=== PATIENT | female | born 1935 | race Caucasian/White ===

== ENCOUNTER → 2016-12-02 | Outpatient (CLI) | payer MEDICARE ==
[~2016-12-02] MED LIST: FRS/40 PO; SPIR50TA2 PO; TAMO20TA47 PO; VERA180T15 PO; Vitamin D PO
--- NOTE | 2016-12-03 08:25 | MAMMOGRAPHY REPORT ---
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 The patient denies any current complaints. TECHNIQUE: Breast tomosynthesis in addition to standard 2D mammography was performed. Current study was also evaluated with a Computer Aided Detection (CAD) system. Bilateral CC and MLO 2-D and angel synthesis images and spot magnification left CC and ML views were obtained. COMPARISON: Comparison is made to exams dated: 12/01/2015 mammogram, 05/29/2015 mammogram, 11/28/2014 m ammogram, 06/27/2014 mammogram, and 05/29/2015 ultrasound - [facility]. BREAST COMPOSITION: There are scattered areas of fibroglandular density in both breasts. FINDINGS: There has been no significant interval change compared to prior exams. There are stable po stsurgical changes in the left upper outer quadrant, with stable density, architectural distortion, and surgical clips at the lumpectomy bed. Mild diffuse left breast skin and trabecular thickening i s stable, and likely due to prior radiation therapy. Again noted are multiple clusters of similar-a ppearing round/punctate calcifications scattered throughout both breasts, not significantly changed compared to multiple prior exams dating back to at least the October 2014 and May 2014 exams. Gi wily the long-term stability and benign morphology and distribution, the calcifications are considere d benign. No new suspicious masses, calcifications, or areas of architectural distortion are noted in either breast. IMPRESSION: ACR BI-RADS CATEGORY 2: BENIGN There is no mammographic evidence of malignancy in either breast. Recommend routine bilateral mammo grams in one year; I would recommend the patient remain a diagnostic patient given the history of le ft breast cancer and bilateral calcifications. The patient has been verbally notified of the result s. Approximately 10% of breast cancers are not detected with mammography. A negative mammographic repor t should not delay biopsy if a clinically suggestive mass is present. Belia Mayfield M.D. /:12/02/2016 09:39:57 Operational Test Mechanic: Rola REDD)(Azeb), [facility] letter sent: Normal /2 BI-RADS Code: ACR BI-RADS Category 2: Benign
== END | disposition home or self-care (01) ==
LOC: C.MAMM 08:14
PROVIDERS: ATTEND Internal Medicine Hematology & Oncology
DX: Z08 Encounter for follow-up examination after completed treatment for malignant neoplasm (principal); Z85.3 Personal history of malignant neoplasm of breast

== ENCOUNTER → 2017-04-04 | Outpatient (CLI) | payer MEDICARE ==
[~2017-04-04] MED LIST changes: +ACET325T96 PO; -TAMO20TA47 PO; +TAMO20TA9 PO
[2017-04-04 12:49] LABS: BLOOD UREA NITROGEN 28 mg/dl (7-18); BUN/CREATININE RATIO 16.5 (10-20); CARBON DIOXIDE 26 mmol/L (21-32); CHLORIDE 105 mmol/L (98-107); GLUCOSE 104 mg/dl (70-99); PHOSPHORUS 2.6 mg/dl (2.5-4.9); POTASSIUM 4.3 mmol/L (3.5-5.1); SODIUM 141 mmol/L (136-145)
[2017-04-04 12:50] LABS: URINE APPEARANCE CLOUDY (CLEAR); URINE BILIRUBIN NEG (NEG); URINE COLOR DK YELLOW; URINE EPITHELIAL CELL AUTO >30 /lpf (0-5); URINE NITRITE NEG (NEG); URINE SPECIFIC GRAVITY 1.019 (1.000-1.030); UROBILINOGEN NEG (NEG)
[2017-04-04 12:57] LABS: MANUAL MICROSCOPIC REQUIRED? NO; REVIEW REQ? YES
[2017-04-04 13:00] LABS: CALCIUM 9.6 mg/dl (8.5-10.1)
== END | disposition home or self-care (01) ==
LOC: C.LAB1850 09:37
PROVIDERS: ATTEND Internal Medicine Nephrology
DX: N18.3 Chronic kidney disease, stage 3 (moderate) (principal)

== ENCOUNTER → 2017-04-11 | Outpatient (CLI) | payer MEDICARE ==
[2017-04-11 11:11] LABS: CALCIUM 9.4 mg/dl (8.5-10.1)
[2017-04-11 11:19] LABS: BLOOD UREA NITROGEN 32 mg/dl (7-18); BUN/CREATININE RATIO 22.6 (10-20); CARBON DIOXIDE 23 mmol/L (21-32); CHLORIDE 107 mmol/L (98-107); GLUCOSE 89 mg/dl (70-99); POTASSIUM 4.2 mmol/L (3.5-5.1); SODIUM 141 mmol/L (136-145)
[2017-04-12 21:53] LABS: ALBUMIN 3.9 G/DL (3.8-4.8); FREE KAPPA 48.9 MG/L (3.3-19.4); FREE KAPPA/LAMBDA RATIO 1.91 (0.26-1.65); FREE LAMBDA 25.6 MG/L (5.7-26.3); GAMMA GLOBULIN 1.3 G/DL (0.8-1.7); MONOCLONAL PROTEIN BAND 1 0.5 G/DL (NOT DETECTED); TOTAL PROTEIN 7.1 G/DL (6.2-8.3)
== END | disposition home or self-care (01) ==
LOC: C.LAB1850 09:55
PROVIDERS: ATTEND Internal Medicine Nephrology
DX: R31.29 Other microscopic hematuria (principal); N17.9 Acute kidney failure, unspecified

== ENCOUNTER → 2017-09-06 | Outpatient (CLI) | payer MEDICARE ==
[2015-08-28 13:11] VITALS: BP 116/68; PULSE 84
[2017-09-06 13:12] VITALS: BP 141/62; PULSE 64; TEMP 36.8; O2SAT 96
--- NOTE | 2017-09-06 14:41 | Radiation Oncology Follow-Up ---
Radiation Oncology Follow-Up Date of Visit Sep 06, 2017. Reason For Visit Annual follow-up Radiation Completion Date Hypofractionation 03/12/14 Diagnosis (1) Ductal carcinoma in situ of breast Status: Resolved Onset Date: 01/02/2014 Stage: 0 Permanent Comment: Abnormal left breast mammogram Biopsy-positive for DCIS have logic stage [id number] status post completion of radiation therapy utilizing hypo-fractionation completed 03/12/2014 received 5006 cGy Last Edited By: Chely Yarbrough on Aug 28, 2015 14:18 Interim History She's been doing well over this past year. She is noted no changes to her breast. She is noted no masses or tenderness no change of the axilla. She's had no swelling of her arm. She is up-to-date with mammography. She does feel that she is currently not scheduled for follow-up mammography. We discussed the previous issue of neck discomfort that she was having last year. This has completely resolved. This did not recur. She is having issues with pain of her ankles and feet. She is following with an orthopedic surgeon. She has been prescribed new orthotics. Allergies Coded Allergies: Penicillins (Verified Allergy, Intermediate, RASH, 01/02/14) Home Medications Scheduled Furosemide (Lasix), 20 MG PO HS Spironolactone (Aldactone), 50 MG PO HS Tamoxifen (Nolvadex), 20 MG PO DAILY Verapamil Sust Rel (Calan Sr Ext Rel), 180 MG PO DAILY [Vitamin D], 20,000 INTER.UNIT PO DAILY Scheduled PRN Acetaminophen Tab (Tylenol), 650 MG PO Q6H PRN for Pain Review of Systems Gastrointestinal: Symptoms: WNL Oral: Symptoms: No Problems Respiratory: Symptoms: WNL Urinary: Symptoms: WNL Comments: Having workup for microscopic hematuria; Skin: Symptoms: No Problems Breast: Right Upper Arm Measurement: 31.5 Right Mid Arm Measurement: 23.3 Right Wrist Measurement: 16.8 Left Upper Arm Measurement: 30.5 Left Mid Arm Measurement: 23.3 Left Wrist Measurement: 16.0 Arm Dominence: Right Physical Exam Vital Signs Date Time Temp Pulse Resp B/P (MAP) Pulse Ox O2 Delivery O2 Flow Rate FiO2 09/06/17 13:12 36.8 64 20 141/62 96 Pain: Pain Location: None Patient Pain Scale: 0 - 10 Initial Pain Intensity: 0.0 Fatigue: None General Appearance: no apparent distress Eyes: normal inspection, EOMI ENT: normal ENT inspection, hearing grossly normal Neck: no adenopathy, thyroid normal Respiratory/Chest: lungs clear, no respiratory distress, no accessory muscle use Breast: Breast examination reveals well-healed incision of the left breast. There are no masses or tenderness and no axillary adenopathy. She has no skin retractions or nipple changes. Using the Philadelphia score cosmesis she has a excellent outcome. The right breast showed no masses or tenderness no axillary adenopathy. Cardiovascular: regular rate, rhythm, no gallop, no murmur Abdomen: non tender, soft Extremities: no pedal edema Neurologic/Psychiatric: no motor/sensory deficits, alert, normal mood/affect Skin: warm/dry Additional Studies Patient: INDRA BARBOUR [facility] Rec: [id number] Address1: [address] [place] [address] Address2: [facility] ID: [id number] Date: 1935 Sex: F Ref Phy: Att Phy: Kirk Colunga MD [place]qu[place] Phy: Morgan Mcdaniel D.O.Int.Med. 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 The patient denies any current complaints. TECHNIQUE: Breast tomosynthesis in addition to standard 2D mammography was performed. Current study was also evaluated with a Computer Aided Detection (CAD ) system. Bilateral CC and MLO 2-D and tomosynthesis images and spot magnification left CC and ML views were obtained. COMPARISON: Comparison is made to exams dated: 12/01/2015 mammogram, 05/29/2015 mammogram, 11/28/2014 mammogram, 06/27/2014 mammogram, and 05/29/2015 ultrasound - [facility]. BREAST COMPOSITION: There are scattered areas of fibroglandular density in both breasts. FINDINGS: There has been no significant interval change compared to prior exams. There are stable postsurgical changes in the left upper outer quadrant, with stable density, architectural distortion, and surgical clips at the lumpectomy bed. Mild diffuse left breast skin and trabecular thickening is stable, and likely due to prior radiation therapy. Again noted are multiple clusters of similar-appearing round/punctate calcifications scattered throughout both breasts, not significantly changed compared to multiple prior exams dating back to at least the October 2014 and May 2014 exams. Given the long-term stability and benign morphology and distribution, the calcifications are considered benign. No new suspicious masses, calcifications , or areas of architectural distortion are noted in either breast. IMPRESSION: ACR BI-RADS CATEGORY 2: BENIGN There is no mammographic evidence of malignancy in either breast. Recommend routine bilateral mammograms in one year; I would recommend the patient remain a diagnostic patient given the history of left breast cancer and bilateral calcifications. The patient has been verbally notified of the results. Approximately 10% of breast cancers are not detected with mammography. A negative mammographic report should not delay biopsy if a clinically suggestive mass is present. Belia Mayfield M.D. ah/:12/02/2016 09:39:57 Helper Driver: Rola REDD)(Azeb), [facility] letter sent: Normal 1/2 BI-RADS Code: ACR BI-RADS Category 2: Benign Dictated by: Belia Mayfield MD Signed by: Belia Mayfield MD Assessment & Plan Plan: Continue annual mammography. We did schedule her for a mammogram for next year. Continue regular follow-up with medical oncology and her primary care physician. We asked her to return to our office in 1 year. She recall she has any questions or concerns in the interim. Total Time In Follow-Up I spent 20 minutes speaking to the patient and performing examination. I spent 15 minutes reviewing information in completing this note. Copy To Judith Iqbal P.A.; Kirk Colunga MD Problem Qualifiers (1) Ductal carcinoma in situ of breast: Laterality: left Qualified Codes: D05.12 - Intraductal carcinoma in situ of left breast
== END | disposition home or self-care (01) ==
LOC: C.ONC 13:06
PROVIDERS: ATTEND Physician Assistant Medical
DX: Z08 Encounter for follow-up examination after completed treatment for malignant neoplasm (principal); Z92.3 Personal history of irradiation; Z85.3 Personal history of malignant neoplasm of breast

== ENCOUNTER → 2017-10-04 | Outpatient (CLI) | payer MEDICARE ==
[2017-10-04 13:27] LABS: URINE APPEARANCE CLEAR (CLEAR); URINE BILIRUBIN NEG (NEG); URINE COLOR YELLOW; URINE NITRITE NEG (NEG); URINE SPECIFIC GRAVITY 1.018 (1.000-1.030); UROBILINOGEN NEG (NEG)
[2017-10-04 13:30] LABS: MANUAL MICROSCOPIC REQUIRED? NO; REVIEW REQ? NO
[2017-10-04 13:46] LABS: CREATININE, URINE 73.4 mg/dl; URINE PROTIEN/CREAT RATIO 0.2 (0-0.2); URINE TOTAL PROTEIN 11.5 mg/dl (0-11.9)
[2017-10-04 13:47] LABS: HEMATOCRIT 43.8 % (37-47); MEAN CELL VOLUME 94.6 fL (80-100); MEAN CORPUSCULAR HEMOGLOBIN 30.9 pg (25-34); MEAN CORPUSCULAR HGB CONC 32.6 g/dl (32-36); MEAN PLATELET VOLUME 10.3 fL (7.4-10.4); PLATELET COUNT 260 K/uL (130-400); RED BLOOD COUNT 4.63 M/uL (4.2-5.4); WHITE BLOOD COUNT 7.18 K/uL (4.8-10.8)
[2017-10-04 14:02] LABS: BLOOD UREA NITROGEN 33 mg/dl (7-18); BUN/CREATININE RATIO 21.5 (10-20); CALCIUM 9.7 mg/dl (8.5-10.1); CARBON DIOXIDE 26 mmol/L (21-32); CHLORIDE 105 mmol/L (98-107); CREATININE 1.54 mg/dl (0.60-1.20); GLUCOSE 123 mg/dl (70-99); PHOSPHORUS 2.8 mg/dl (2.5-4.9); POTASSIUM 4.1 mmol/L (3.5-5.1); SODIUM 138 mmol/L (136-145)
== END | disposition home or self-care (01) ==
LOC: C.LABBC 11:15
PROVIDERS: ATTEND Internal Medicine Nephrology
DX: N18.3 Chronic kidney disease, stage 3 (moderate) (principal); E55.9 Vitamin D deficiency, unspecified

== ENCOUNTER → 2017-12-05 | Outpatient (CLI) | payer MEDICARE ==
--- NOTE | 2017-12-06 13:28 | MAMMOGRAPHY REPORT ---
BILATERAL DIGITAL SCREENING MAMMOGRAM TOMOSYNTHESIS WITH CAD: 12/05/2017 CLINICAL HISTORY: Asymptomatic. Personal history of breast cancer. TECHNIQUE: Breast tomosynthesis in addition to standard 2D mammography was performed. Current study was also evaluated with a Computer Aided Detection (CAD) system. COMPARISON: Comparison is made to exams dated: 12/02/2016 mammogram, 12/01/2015 mammogram, 05/29/2015 janet mogram, 11/28/2014 mammogram, 06/27/2014 mammogram, and 05/07/2013 mammogram - [facility]. BREAST COMPOSITION: There are scattered areas of fibroglandular density in both breasts. FINDINGS: The left MLO 2-D view is degraded by patient motion. However, the corresponding left MLO t omosynthesis images and reconstructed C-view are considered adequate for evaluation. There are stabl e postsurgical changes in the 12:00 middle and anterior left breast, at the site of prior lumpectomy. There are diffuse bilateral microcalcifications including stable groupings of microcalcifications i n the lateral and medial left breast, that are similar in appearance dating back to at least 04/26/20 08, therefore likely benign. No new suspicious mass, architectural distortion or new suspicious micr ocalcifications are identified. IMPRESSION: ACR BI-RADS CATEGORY 1: NEGATIVE There is no mammographic evidence of malignancy. A 1 year screening mammogram is recommended. The pa tient will receive written notification of the results. Approximately 10% of breast cancers are not detected with mammography. A negative mammographic report should not delay biopsy if a clinically suggestive mass is present. Karol Thomson M.D. ay/:12/05/2017 17:14:19 Clothing Consultant: Roselia REDD)(Azeb), [facility] letter sent: Normal /2 BI-RADS Code: ACR BI-RADS Category 1: Negative
== END | disposition home or self-care (01) ==
LOC: C.MAMM 08:45
PROVIDERS: ATTEND Physician Assistant Medical
DX: Z12.31 Encounter for screening mammogram for malignant neoplasm of breast (principal); Z85.3 Personal history of malignant neoplasm of breast

== ENCOUNTER → 2018-03-02 | Outpatient (CLI) | payer MEDICARE ==
[~2018-03-02] MED LIST changes: +ACET-1693 PO; -ACET325T96 PO
[2018-03-02 10:55] LABS: BASO % 0.5 %; BASO ABS # 0.04 K/uL (0-0.2); EOS % 0.9 %; EOS ABS # 0.07 K/uL (0-0.5); HEMATOCRIT 40.8 % (37-47); HEMOGLOBIN 13.5 g/dL (12.0-16.0); IG# 0.03 K/uL (0.00-0.02); LYMPH % 24.7 %; MEAN CELL VOLUME 93.6 fL (80-100); MEAN CORPUSCULAR HGB CONC 33.1 g/dl (32-36); MEAN PLATELET VOLUME 10.1 fL (7.4-10.4); MONO % 11.4 %; MONO ABS # 0.92 K/uL (0.11-0.59); NEUT % 62.1 %; NEUT ABS # 5.04 K/uL (1.4-6.5); PLATELET COUNT 257 K/uL (130-400); RED CELL DISTRIBUTION WIDTH CV 13.5 % (11.5-14.5); RED CELL DISTRIBUTION WIDTH SD 46.7 fL (36.4-46.3)
[2018-03-02 14:00] LABS: ALBUMIN 3.5 gm/dl (3.4-5.0); ALT/SGPT 13 U/L (12-78); AST/SGOT 16 U/L (15-37); BLOOD UREA NITROGEN 41 mg/dl (7-18); CALCIUM 9.7 mg/dl (8.5-10.1); CARBON DIOXIDE 24 mmol/L (21-32); CREATININE 1.38 mg/dl (0.60-1.20); GLUCOSE 95 mg/dl (70-99); POTASSIUM 4.4 mmol/L (3.5-5.1); SODIUM 134 mmol/L (136-145)
[2018-03-02 14:02] LABS: ALKALINE PHOSPHATASE 68 U/L (45-117); TOTAL PROTEIN 7.4 gm/dl (6.4-8.2)
== END | disposition home or self-care (01) ==
LOC: C.LABBC 09:02
PROVIDERS: ATTEND Internal Medicine Hematology & Oncology
DX: Z85.3 Personal history of malignant neoplasm of breast (principal)

== ENCOUNTER → 2018-05-31 | Outpatient (CLI) | payer BC ==
[~2018-05-31] MED LIST changes: +BISA10SU3 PR; +CALC1CAP36 PO; +CHOL20009 PO; +FRRS300 PO; -FRS/40 PO; +FURO-85 PO; +METO25TA3 PO; +MOMLX PO; +MRLP17 PO; +NLV/20 PO; +POTA10CA28 PO; +SODI1ENE PR; -SPIR50TA2 PO; -TAMO20TA9 PO; +ULT50X PO; -VERA180T15 PO; -Vitamin D PO
[2018-05-31 17:05] LABS: HEMATOCRIT 35.1 % (37-47); HEMOGLOBIN 11.2 g/dL (12.0-16.0); MEAN CORPUSCULAR HEMOGLOBIN 30.9 pg (25-34); MEAN CORPUSCULAR HGB CONC 31.9 g/dl (32-36); MEAN PLATELET VOLUME 10.2 fL (7.4-10.4); PLATELET COUNT 345 K/uL (130-400); RED CELL DISTRIBUTION WIDTH CV 14.8 % (11.5-14.5); RED CELL DISTRIBUTION WIDTH SD 52.6 fL (36.4-46.3); WHITE BLOOD COUNT 9.07 K/uL (4.8-10.8)
[2018-05-31 17:18] LABS: BLOOD UREA NITROGEN 23 mg/dl (7-18); CALCIUM 9.7 mg/dl (8.5-10.1); CARBON DIOXIDE 28 mmol/L (21-32); CREATININE 1.21 mg/dl (0.60-1.20); GLUCOSE 94 mg/dl (70-99); POTASSIUM 4.2 mmol/L (3.5-5.1); SODIUM 139 mmol/L (136-145)
== END | disposition home or self-care (01) ==
LOC: C.LABBC 12:14
PROVIDERS: ATTEND Physician Assistant Medical
DX: D64.9 Anemia, unspecified (principal); I48.0 Paroxysmal atrial fibrillation